=== PATIENT | female | born 1955 | race Caucasian/White ===

== ENCOUNTER 2021-02-27 10:27 | Observation (INO) ==
[2021-02-27] MEDS ORDERED: Melatonin 3 MG TABLET PO PRN (13:32)
[2021-02-27] MEDS ORDERED: Naloxone 0.4 MG/ML INJ IVP PRN (13:32)
[2021-02-27] MEDS ORDERED: Acetaminophen 325 MG TABLET PO PRN (13:32)
[2021-02-27] MEDS ORDERED: Ondansetron 4 MG/2 ML VIAL IVP PRN (13:32)
[2021-02-27] MEDS ORDERED: Perflutren Lipid Microsphere 1.3 ML in 0.9 % Sodium Chloride 8.7 ML IVP PRN (15:05)
[2021-02-27] MEDS ORDERED: 0.9 % Sodium Chloride 500 ML IVC SCH (15:30)
[2021-02-27] MEDS: *HR* Enoxaparin 60 MG/0.6 ML SYRINGE SQ SCH (18:38)
[2021-02-27] MEDS: Budesonide/Formoterol 160/4.5 1 PUFF INH IH SCH (20:41)
[2021-02-28] MEDS: *HR* Enoxaparin 60 MG/0.6 ML SYRINGE SQ SCH (04:35)
[2021-02-28 06:32] LABS: Troponin I 0.04 ng/mL (< 0.04)
[2021-02-28 06:33] LABS: Red Cell Distribution Width 11.9 % (11.5-14.5)
[2021-02-28 06:35] LABS: Hematocrit 37.9 % (35.3-44.9); Hemoglobin 13.3 g/dL (11.5-15.4); Immature Platelets 4.8 % (1.1-6.1); Mean Corpuscular HGB Conc 35.1 g/dL (31.6-35.5); Mean Corpuscular Hemoglobin 33.6 pg (28.0-33.3); Mean Corpuscular Volume 95.7 fL (83.0-100.0); Mean Platelet Volume 10.5 fL (9.4-12.4); Red Blood Count 3.96 M/mcL (3.82-4.97); White Blood Count 6.7 K/mcL (4.3-11.1)
[2021-02-28 06:36] LABS: BUN/Creatinine Ratio 20 (6-26); Blood Urea Nitrogen 9 mg/dL (8-23); Calcium 8.4 mg/dL (8.6-10.3); Carbon Dioxide 23 mEq/L (23-29); Chloride 107 mEq/L (98-107); Glucose 184 mg/dL (70-105); Magnesium 1.8 mg/dL (1.6-2.6); Osmolality,Calculated 289 (280-300); Potassium 3.2 mEq/L (3.5-5.1); Sodium 138 mEq/L (136-145); eGFR For African Americans > 60 (> 60); eGFR For Non-African Americans > 60 (> 60)
[2021-02-28] MEDS: Budesonide/Formoterol 160/4.5 1 PUFF INH IH SCH (07:46)
[2021-02-28] MEDS ORDERED: Dexamethasone Sodium Phos/PF 10 MG/ML VIAL IVP SCH (09:00)
[2021-02-28] MEDS ORDERED: Aspirin Enteric Coated 81 MG Tablet PO SCH (09:00)
[2021-02-28 11:09] VITALS: BP 119/74; PULSE 86; TEMP 97.9; O2SAT 96
== END 2021-02-28 16:49 | disposition home or self-care (01) ==
LOC: 2ANU → SUATTDRO 12:18
PROVIDERS: ADMIT Internal Medicine; ATTEND Internal Medicine